=== PATIENT | female | born 1985 | race Caucasian/White ===

== ENCOUNTER → 2020-05-11 | Outpatient (CLI) | payer OTHER ==
[~2020-05-11] MED LIST: ALL DAY ALLERGY10 MG PO; ASPIR 8181 MG PO; ASPIRIN CHEWABL81 MG PO; BENTYL 20MG TAB20 MG PO; COLACE 100MG C100 MG PO; CRESTOR10 MG PO; DOCUSATE SODIU100 MG PO; ECOTRIN81 MG PO; EXCEDRIN MIGRA1 EACH PO; FERROUS SULFAT325 M2 PO; IBUPROFEN600 MG PO; INDERAL TAB 2020 MG PO; K-DUR TAB 10 M10 MEQ PO; MICROZIDE12.5 MG PO; NAPROSYN EC 37375 MG PO; NAPROSYN500 MG PO; NAPROXEN250 MG PO; NITROSTAT0.4 MG SL; NORETHINDRONE PO; OMEPRAZOLE40 MG PO; PERCOCET 5/325 T1 EA PO; PREVACID30 MG PO; PROZAC20 MG PO; QVAR REDIHALE10.6 G1 IH; ROXICODONE TAB 55 MG PO; SERTRALINE HCL50 MG PO; TYLENOL EXTRA500 MG PO; VENTOLIN HFA 66.7 GM INH; VIORELE 28 DAY1 EACH PO; VITAMIN B-121000 MCG PO; ZANTAC150 MG PO
[2020-05-11 15:20] LABS: HEMOGLOBIN 12.3 gm/dl (12.3-15.3); RED BLOOD COUNT 4.91 M/UL (4.00-5.10); WHITE BLOOD COUNT 9.8 K/UL (4.5-11.0)
[2020-05-11 15:44] LABS: BUN/CREATININE RATIO 10 (0-10)
== END ==
LOC: LAB 14:02
PROVIDERS: Family Medicine
DX: I10 Essential (primary) hypertension (principal); E78.5 Hyperlipidemia, unspecified; E55.9 Vitamin D deficiency, unspecified; E53.8 Deficiency of other specified B group vitamins
CPT/HCPCS: 36415; 80053; 80061; 82607; 85027

== ENCOUNTER → 2020-08-02 | Outpatient (CLI) | payer OTHER ==
[2020-08-02 09:39] LABS: HEMOGLOBIN 13.1 gm/dl (12.3-15.3); RED BLOOD COUNT 5.22 M/UL (4.00-5.10); WHITE BLOOD COUNT 11.3 K/UL (4.5-11.0)
== END ==
LOC: OPSV2 08:00
PROVIDERS: Obstetrics & Gynecology
DX: Z01.812 Encounter for preprocedural laboratory examination (principal); R10.2 Pelvic and perineal pain
CPT/HCPCS: 36415; 81001; 84702; 85025

== ENCOUNTER → 2020-08-03 | Day surgery (SDC) | payer OTHER | END | disposition home or self-care (01) | LOC: OR 06:54 | DX: N93.9 Abnormal uterine and vaginal bleeding, unspecified (principal); R10.2 Pelvic and perineal pain; J45.909 Unspecified asthma, uncomplicated; K21.9 Gastro-esophageal reflux disease without esophagitis; E66.01 Morbid (severe) obesity due to excess calories; R93.89 Abnormal findings on diagnostic imaging of other specified body structures; Z20.822 Contact with and (suspected) exposure to COVID-19; D64.9 Anemia, unspecified | CPT/HCPCS: J1100; J1885; J2001; J2250; J2405; J2704; J2710; J2795; J3010; J7120; U0002 ==

== ENCOUNTER 2020-12-08 12:44 | Emergency (ER) | payer OTHER ==
[2020-12-08 14:12] LABS: HEMOGLOBIN 13.4 gm/dl (12.3-15.3); RED BLOOD COUNT 4.9 M/UL (4.00-5.10); WHITE BLOOD COUNT 8.2 K/UL (4.5-11.0)
[2020-12-08 14:36] LABS: BUN/CREATININE RATIO 10 (0-10)
[2020-12-08] MEDS ORDERED: PROVERA10 MG PO (16:00)
== END 2020-12-08 16:29 | disposition home or self-care (01) ==
LOC: ER1 12:44
PROVIDERS: Student in an Organized Health Care Education/Training Program
DX: N93.9 Abnormal uterine and vaginal bleeding, unspecified (principal)
CPT/HCPCS: 76830; 80053; 81001; 84702; 85025; 99284

== ENCOUNTER → 2021-07-19 | Outpatient (CLI) | payer OTHER ==
[~2021-07-19] MED LIST changes: +BUSPIRONE HCL5 MG PO; +PRAZOSIN HCL1 MG PO; +PROVERA10 MG PO; +ZYRTEC10 M3 PO
[2021-07-19 12:28] LABS: HEMOGLOBIN 14.3 gm/dl (12.3-15.3); RED BLOOD COUNT 5.12 M/UL (4.00-5.10); WHITE BLOOD COUNT 10.1 K/UL (4.5-11.0)
== END ==
LOC: OPSV2 10:00
PROVIDERS: Obstetrics & Gynecology
DX: Z01.812 Encounter for preprocedural laboratory examination (principal); R10.2 Pelvic and perineal pain; R58 Hemorrhage, not elsewhere classified
CPT/HCPCS: 36415; 81001; 85025

== ENCOUNTER → 2021-07-26 | Day surgery (SDC) | payer OTHER | END | disposition home or self-care (01) | LOC: OR 05:39 | DX: N93.9 Abnormal uterine and vaginal bleeding, unspecified (principal); R10.2 Pelvic and perineal pain; J44.9 Chronic obstructive pulmonary disease, unspecified; K21.9 Gastro-esophageal reflux disease without esophagitis; E66.01 Morbid (severe) obesity due to excess calories; F41.9 Anxiety disorder, unspecified; F32.A Depression, unspecified; D64.9 Anemia, unspecified; Z88.2 Allergy status to sulfonamides; Z88.5 Allergy status to narcotic agent; Z88.8 Allergy status to other drugs, medicaments and biological substances; Z68.41 Body mass index [BMI] 40.0-44.9, adult; Z79.899 Other long term (current) drug therapy | CPT/HCPCS: 84703; J0690; J1100; J1170; J1885; J2001; J2250; J2405; J2704; J2795; J3010; J7120 ==

== ENCOUNTER 2021-09-06 17:16 | Emergency (ER) | payer OTHER ==
[2021-09-06 17:59] LABS: HEMOGLOBIN 13.4 gm/dl (12.3-15.3); RED BLOOD COUNT 4.74 M/UL (4.00-5.10); WHITE BLOOD COUNT 11.2 K/UL (4.5-11.0)
[2021-09-06 18:17] LABS: BUN/CREATININE RATIO 12 (0-10)
== END 2021-09-06 19:00 | disposition home or self-care (01) ==
LOC: ER1 17:16
PROVIDERS: Family Medicine
DX: R07.9 Chest pain, unspecified (principal); F17.200 Nicotine dependence, unspecified, uncomplicated
CPT/HCPCS: 71045; 80053; 82550; 82553; 83690; 84484; 85025; 85379; 93005; 99285